=== PATIENT | female | born 1955 | race Caucasian/White ===

== ENCOUNTER 2017-03-14 16:33 | Inpatient (IN) | payer OTHER ==
[2017-03-14] VITALS (9 sets, daily range): BP systolic 124–177; BP diastolic 65–106
[~2017-03-14] VITALS: Ht 160 cm; Wt 67.2 kg
[~2017-03-14 16:33] MED LIST: AMLODIPINE BESY10 MG PO; ASPIRIN325 MG PO; CAPTOPRIL50 MG PO; CARVEDILOL25 MG PO; CILOSTAZOL100 MG PO; ENDOCET 5-3251 EACH PO; GLIPIZIDE10 MG PO; METFORMIN HCL500 MG PO; PLAVIX75 MG PO; PRAVASTATIN SOD80 MG PO
[2017-03-14 16:59] LABS: BASOPHIL COUNT 0.1 K/uL (0-0.1); EOSINOPHIL (%) 1.3 % (0-5); EOSINOPHIL COUNT 0.2 K/uL (0-0.3); HEMATOCRIT 42.6 % (36.0-46.0); IMMATURE GRANULOCYTE (%) 0.3 % (0.0-0.7); INSTRUMENT ABS NEUTROPHIL CT 8.8 K/uL; LYMPHOCYTE COUNT 2.2 K/uL (1.0-2.8); MCH 28.7 PG (29.0-34.0); MCHC 33.1 G/DL (30.0-36.0); MCV 86.8 FL (83-99); MEAN PLAT.VOLUME 11.2 uM^3 (9.5-12.4); MONOCYTE (%) 5.2 % (3-12); MONOCYTE COUNT 0.6 K/uL (0-0.8); NEUTROPHIL COUNT 8.8 K/uL (1.8-6.4); PLATELET COUNT 292 K/uL (156-360); RBC DIS.WIDTH-CV 14.2 % (11.8-14.6); RBC DIS.WIDTH-SD 45.1 % (39-53); RED BLOOD COUNT 4.91 M/uL (3.80-5.20); WHITE BLOOD COUNT 11.9 K/uL (4.1-10.2)
[2017-03-14 17:06] LABS: AMYLASE 79 IU/L (1-118); CHLORIDE 109 mEq/L (99-109); POTASSIUM 4.4 mEq/L (3.7-5.4); SODIUM 141 mEq/L (136-147)
[2017-03-14 17:07] LABS: GLUCOSE 134 mg/dL (70-99); PTT 30.1 SEC (25-37)
[2017-03-14 17:09] LABS: ANION GAP 9 MEQ/L (2-14)
[2017-03-14 17:11] LABS: GFR ESTIMATE (CALCULATED) 27 mL/min/; SERUM ETHYL ALCOHOL < 10 mg/dL
[2017-03-14 17:12] LABS: UREA NITROGEN (BUN) 26 mg/dL (9-23)
[2017-03-14 17:14] LABS: LIPASE 86 U/L (1.0-51.0)
[2017-03-14 17:17] LABS: TROP-I INTERPRETATION NEGATIVE; TROPONIN-I 0.04 ng/mL (0.0-0.30)
[2017-03-14 20:39] LABS: METH RESISTANT S AUREUS PCR NEGATIVE (NEGATIVE)
[2017-03-14 20:43] LABS: PROBE CHECK PASS; SPECIMEN PROCESSING CONTROL PASS
[2017-03-15] VITALS (12 sets, daily range): BP systolic 123–176; BP diastolic 62–87
[2017-03-15 01:07] LABS: TROP-I INTERPRETATION POSITIVE; TROPONIN-I 16.81 ng/mL (0.0-0.30)
[2017-03-15 06:18] LABS: EOSINOPHIL COUNT 0.1 K/uL (0-0.3); HEMATOCRIT 37.7 % (36.0-46.0); IMMATURE GRANULOCYTE (%) 0.6 % (0.0-0.7); IMMATURE GRANULOCYTE COUNT 0.1 K/uL; INSTRUMENT ABS NEUTROPHIL CT 10.1 K/uL; LYMPHOCYTE COUNT 1.6 K/uL (1.0-2.8); MCH 27.9 PG (29.0-34.0); MCHC 32.1 G/DL (30.0-36.0); MCV 87.1 FL (83-99); MEAN PLAT.VOLUME 11.3 uM^3 (9.5-12.4); MONOCYTE (%) 5.5 % (3-12); MONOCYTE COUNT 0.7 K/uL (0-0.8); NEUTROPHIL (%) 80.1 % (45-76); NEUTROPHIL COUNT 10.1 K/uL (1.8-6.4); PLATELET COUNT 273 K/uL (156-360); RBC DIS.WIDTH-CV 14.4 % (11.8-14.6); RBC DIS.WIDTH-SD 45.8 % (39-53); RED BLOOD COUNT 4.33 M/uL (3.80-5.20); WHITE BLOOD COUNT 12.6 K/uL (4.1-10.2)
[2017-03-15 06:31] LABS: ANION GAP 9 MEQ/L (2-14); CHLORIDE 108 MEQ/L (99-109); GFR ESTIMATE (CALCULATED) 37 mL/min/; GLUCOSE 141 mg/dL (70-99); POTASSIUM 4.4 MEQ/L (3.7-5.4); SAMPLE HEMOLYSIS CHECK 0; SAMPLE ICTERIC CHECK 0; SAMPLE LIPEMIA CHECK 0; SODIUM 138 MEQ/L (136-147); UREA NITROGEN (BUN) 26 mg/dL (9-23)
[2017-03-15 07:35] LABS: TROP-I INTERPRETATION POSITIVE; TROPONIN-I 18.12 ng/mL (0.0-0.30)
[2017-03-15 13:36] LABS: TROP-I INTERPRETATION POSITIVE; TROPONIN-I 15.16 ng/mL (0.0-0.30)
[2017-03-15] MEDS ORDERED: METFORMIN HCL1000 MG PO (15:11)
[2017-03-15] MEDS ORDERED: IRBESARTAN300 MG PO (15:11)
[2017-03-15] MEDS ORDERED: ATORVASTATIN CA40 MG PO (15:12)
[2017-03-16 00:20] VITALS: BP 141/71
[2017-03-16 04:00] VITALS: BP 142/65
[2017-03-16] MEDS ORDERED: NICOTINE PATCH1 EAC2 TD (07:16)
[2017-03-16 08:24] VITALS: BP 124/79
[2017-03-16 11:28] VITALS: BP 144/73
== END 2017-03-16 13:25 | disposition home or self-care (01) | DRG 247 ==
LOC: EME 16:33 → ENRESERV 16:47 → EME 17:54 → CATH 18:01 → 4WEST 19:05 → ENRESERV 03-15 10:32 → 4WEST 03-15 10:36 → ENRESERV 03-15 10:40 → 4EAST 03-15 11:32 → ENPENDDIS 03-16 → 4EAST 03-16 13:25
PROVIDERS: Emergency Medicine; Internal Medicine Cardiovascular Disease
DX: I21.11 ST elevation (STEMI) myocardial infarction involving right coronary artery (principal); T82.855A Stenosis of coronary artery stent, initial encounter; T82.867A Thrombosis due to cardiac prosthetic devices, implants and grafts, initial encounter; I25.10 Atherosclerotic heart disease of native coronary artery without angina pectoris; E11.9 Type 2 diabetes mellitus without complications; I10 Essential (primary) hypertension; I73.9 Peripheral vascular disease, unspecified; F17.200 Nicotine dependence, unspecified, uncomplicated; Y83.1 Surgical operation with implant of artificial internal device as the cause of abnormal reaction of the patient, or of later complication, without mention of misadventure at the time of the procedure; I25.2 Old myocardial infarction; Z79.02 Long term (current) use of antithrombotics/antiplatelets; Z86.73 Personal history of transient ischemic attack (TIA), and cerebral infarction without residual deficits; Z79.82 Long term (current) use of aspirin
CPT/HCPCS: 80048; 81003; 82150; 82565; 82948; 83690; 84484; 84520; 85025; 85347; 85610; 85730; 86900; 86901; 87641; 93005; 93306; 99281; 99285; C1725; C1769; C1874; C1887; G0480; J1200; J1644; J2250; J3010

== ENCOUNTER 2017-12-04 14:12 | Emergency (ER) | payer OTHER ==
[~2017-12-04] VITALS: Ht 157.5 cm; Wt 69.8 kg
[~2017-12-04 14:12] MED LIST changes: +ATORVASTATIN CA40 MG PO; +IRBESARTAN300 MG PO; +METFORMIN HCL1000 MG PO; +NICOTINE PATCH1 EAC2 TD
[2017-12-04 14:33] LABS: HEMATOCRIT 36.2 % (36.0-46.0); MCH 28.6 PG (29.0-34.0); MCHC 33.1 G/DL (30.0-36.0); MCV 86.2 FL (83-99); PLATELET COUNT 370 K/uL (156-360); RBC DIS.WIDTH-CV 13.3 % (11.8-14.6); RBC DIS.WIDTH-SD 42.1 % (39-53); WHITE BLOOD COUNT 16.7 K/uL (4.1-10.2)
[2017-12-04 14:43] LABS: CHLORIDE 109 mEq/L (99-109); POTASSIUM 4.5 mEq/L (3.7-5.4); SODIUM 140 mEq/L (136-147)
[2017-12-04 14:45] LABS: GLUCOSE 131 mg/dL (70-99)
[2017-12-04 14:49] LABS: CREATININE 2.8 mg/dL (0.6-1.3); GFR ESTIMATE (CALCULATED) 18 mL/min/
[2017-12-04 14:50] LABS: UREA NITROGEN (BUN) 46 mg/dL (9-23)
[2017-12-04 14:53] LABS: TROP-I INTERPRETATION NEGATIVE; TROPONIN-I 0.03 ng/mL (0.0-0.30)
[2017-12-04 16:25] VITALS: BP 167/98
== END 2017-12-04 16:27 | disposition home or self-care (01) ==
LOC: EME 14:12
DX: R07.2 Precordial pain (principal); N17.9 Acute kidney failure, unspecified; R94.31 Abnormal electrocardiogram [ECG] [EKG]; Z53.21 Procedure and treatment not carried out due to patient leaving prior to being seen by health care provider; I10 Essential (primary) hypertension; I25.2 Old myocardial infarction; E11.9 Type 2 diabetes mellitus without complications; E78.5 Hyperlipidemia, unspecified; K21.9 Gastro-esophageal reflux disease without esophagitis; F17.200 Nicotine dependence, unspecified, uncomplicated; Z79.84 Long term (current) use of oral hypoglycemic drugs; Z79.82 Long term (current) use of aspirin; Z79.02 Long term (current) use of antithrombotics/antiplatelets; Z86.73 Personal history of transient ischemic attack (TIA), and cerebral infarction without residual deficits; Z85.9 Personal history of malignant neoplasm, unspecified; Z90.49 Acquired absence of other specified parts of digestive tract; Z95.9 Presence of cardiac and vascular implant and graft, unspecified; Z88.2 Allergy status to sulfonamides; Z88.1 Allergy status to other antibiotic agents
CPT/HCPCS: 71046; 80048; 81003; 84484; 85027; 93005; 99281; 99284

== ENCOUNTER 2018-02-20 12:13 | Inpatient (IN) | payer OTHER ==
[~2018-02-20] VITALS: Ht 157.5 cm; Wt 64.6 kg
[2018-02-20 12:56] LABS: APPEARANCE CLEAR ((CLEAR)); BILIRUBIN NEGATIVE; BLOOD NEGATIVE; COLOR YELLOW ((YELLOW)); GLUCOSE (STRIP) NEGATIVE; KETONES NEGATIVE; LEUKOCYTES NEGATIVE; NITRITE NEGATIVE; PROTEIN (STRIP) >=500; SPECIFIC GRAVITY 1.016 (1.000-1.030); UROBILINOGEN 0.2 MG/DL (0.2-1.0)
[2018-02-20 13:08] LABS: BACTERIA RARE /HPF; CALCIUM OXALATE CRYSTALS 1+ /HPF; EPITHELIAL CELLS 1+ /HPF; MUCUS NONE SEEN /LPF; RED BLOOD CELLS 0-5 /HPF (0-5); UCUL ADDED? NO; WHITE BLOOD CELLS 0-5 /HPF (0-5)
[2018-02-20 13:45] LABS: HEMATOCRIT 33.3 % (36.0-46.0); HEMOGLOBIN 10.7 G/DL (11.9-15.5); MCHC 32.1 G/DL (30.0-36.0); MCV 87.2 FL (83-99); PLATELET COUNT 316 K/uL (156-360); RBC DIS.WIDTH-CV 15.8 % (11.8-14.6); RBC DIS.WIDTH-SD 50.1 % (39-53); RED BLOOD COUNT 3.82 M/uL (3.80-5.20); WHITE BLOOD COUNT 15.5 K/uL (4.1-10.2)
[2018-02-20 13:55] LABS: CHLORIDE 110 mEq/L (99-109); POTASSIUM 5.6 mEq/L (3.7-5.4); SODIUM 136 mEq/L (136-147)
[2018-02-20 13:56] LABS: GLUCOSE 138 mg/dL (70-99)
[2018-02-20 14:00] LABS: CREATININE 4.4 mg/dL (0.6-1.3); GFR ESTIMATE (CALCULATED) 11 mL/min/
[2018-02-20 14:01] LABS: UREA NITROGEN (BUN) 70 mg/dL (9-23)
[2018-02-20] MEDS ORDERED: NORVASC10 MG PO (18:15)
[2018-02-20] MEDS ORDERED: AFRIN,GENASAL D15 ML BOTH NARES (18:15)
[2018-02-20 21:54] VITALS: BP 169/80
[2018-02-21] VITALS (7 sets, daily range): BP systolic 127–181; BP diastolic 63–82
[2018-02-21 06:17] LABS: HEMATOCRIT 27.8 % (36.0-46.0); HEMOGLOBIN 8.8 G/DL (11.9-15.5); MCH 27.8 PG (29.0-34.0); MCHC 31.7 G/DL (30.0-36.0); MCV 87.7 FL (83-99); PLATELET COUNT 278 K/uL (156-360); RBC DIS.WIDTH-CV 15.6 % (11.8-14.6); RBC DIS.WIDTH-SD 50.4 % (39-53); RED BLOOD COUNT 3.17 M/uL (3.80-5.20); WHITE BLOOD COUNT 12.4 K/uL (4.1-10.2)
[2018-02-21 06:39] LABS: ALBUMIN 3.1 G/DL (3.2-4.8); CHLORIDE 111 MEQ/L (99-109); PHOSPHORUS 5.8 mg/dL (2.5-4.9); POTASSIUM 5.1 MEQ/L (3.7-5.4); SODIUM 139 MEQ/L (136-147); UREA NITROGEN (BUN) 59 mg/dL (9-23)
[2018-02-21 06:45] LABS: CREATININE 3.5 MG/DL (0.6-1.3); GFR ESTIMATE (CALCULATED) 14 mL/min/; GLUCOSE 97 mg/dL (70-99)
[2018-02-21 13:14] LABS: HEMOGLOBIN A1c (GLYCOHEMOGLOB) 6.9 % (Below 5.7)
[2018-02-21 16:16] LABS: CHLORIDE 112 MEQ/L (99-109); CREATININE 3.7 MG/DL (0.6-1.3); GFR ESTIMATE (CALCULATED) 13 mL/min/; GLUCOSE 131 mg/dL (70-99); POTASSIUM 4.8 MEQ/L (3.7-5.4); SODIUM 138 MEQ/L (136-147); UREA NITROGEN (BUN) 60 mg/dL (9-23)
[2018-02-22 03:43] VITALS: BP 141/67
[2018-02-22 06:12] LABS: BASOPHIL (%) 0.7 % (0-1); BASOPHIL COUNT 0.1 K/uL (0-0.1); EOSINOPHIL (%) 1.8 % (0-5); EOSINOPHIL COUNT 0.2 K/uL (0-0.3); HEMATOCRIT 26.9 % (36.0-46.0); HEMOGLOBIN 8.6 G/DL (11.9-15.5); IMMATURE GRANULOCYTE (%) 0.2 % (0.0-0.7); LYMPHOCYTE (%) 20.7 % (15-42); LYMPHOCYTE COUNT 1.8 K/uL (1.0-2.8); MCH 27.3 PG (29.0-34.0); MCV 85.4 FL (83-99); MONOCYTE (%) 7.8 % (3-12); MONOCYTE COUNT 0.7 K/uL (0-0.8); NEUTROPHIL (%) 68.8 % (45-76); NEUTROPHIL COUNT 6.1 K/uL (1.8-6.4); PLATELET COUNT 270 K/uL (156-360); RBC DIS.WIDTH-CV 15.4 % (11.8-14.6); RBC DIS.WIDTH-SD 47.5 % (39-53); RED BLOOD COUNT 3.15 M/uL (3.80-5.20); WHITE BLOOD COUNT 8.9 K/uL (4.1-10.2)
[2018-02-22 06:37] LABS: CHLORIDE 110 MEQ/L (99-109); CREATININE 3.9 MG/DL (0.6-1.3); GFR ESTIMATE (CALCULATED) 12 mL/min/; GLUCOSE 119 mg/dL (70-99); IRON 21 MCG/DL (35-150); PHOSPHORUS 5.6 mg/dL (2.5-4.9); POTASSIUM 4.4 MEQ/L (3.7-5.4); SODIUM 142 MEQ/L (136-147); TRANSFERRIN (TIBC) 213.9 mg/dL (215-380); TRANSFERRIN SATUR. 10 % (20-55); UREA NITROGEN (BUN) 58 mg/dL (9-23)
[2018-02-22 06:55] LABS: URIC ACID 5.8 mg/dL (3.1-9.2)
[2018-02-22 07:33] VITALS: BP 196/77
[2018-02-22 11:46] VITALS: BP 151/77
[2018-02-22 14:08] LABS: URINE TOTAL PROTEIN 125 MG/DL (0-10)
[2018-02-22 14:09] LABS: UR CREATININE CONCENTRATION 17.1 MG/DL
[2018-02-22 15:26] VITALS: BP 140/74
[2018-02-22 19:16] VITALS: BP 148/67
[2018-02-22 23:16] VITALS: BP 134/68
[2018-02-23 03:40] VITALS: BP 152/73
[2018-02-23 06:16] LABS: BASOPHIL (%) 0.6 % (0-1); BASOPHIL COUNT 0.1 K/uL (0-0.1); EOSINOPHIL (%) 1.6 % (0-5); EOSINOPHIL COUNT 0.2 K/uL (0-0.3); HEMATOCRIT 27.6 % (36.0-46.0); HEMOGLOBIN 8.9 G/DL (11.9-15.5); IMMATURE GRANULOCYTE (%) 0.4 % (0.0-0.7); LYMPHOCYTE (%) 13.8 % (15-42); LYMPHOCYTE COUNT 1.3 K/uL (1.0-2.8); MCH 27.1 PG (29.0-34.0); MCHC 32.2 G/DL (30.0-36.0); MCV 84.1 FL (83-99); MONOCYTE (%) 7.3 % (3-12); MONOCYTE COUNT 0.7 K/uL (0-0.8); NEUTROPHIL (%) 76.3 % (45-76); NEUTROPHIL COUNT 7.2 K/uL (1.8-6.4); PLATELET COUNT 318 K/uL (156-360); RBC DIS.WIDTH-CV 15.2 % (11.8-14.6); RBC DIS.WIDTH-SD 46.8 % (39-53); RED BLOOD COUNT 3.28 M/uL (3.80-5.20); WHITE BLOOD COUNT 9.5 K/uL (4.1-10.2)
[2018-02-23 06:36] LABS: ALBUMIN 3.2 G/DL (3.2-4.8); CHLORIDE 108 MEQ/L (99-109); CREATININE 3.8 MG/DL (0.6-1.3); GFR ESTIMATE (CALCULATED) 13 mL/min/; GLUCOSE 116 mg/dL (70-99); MAGNESIUM 1.4 mg/dl (1.3-2.7); PHOSPHORUS 5.4 mg/dL (2.5-4.9); POTASSIUM 4.2 MEQ/L (3.7-5.4); SODIUM 141 MEQ/L (136-147); UREA NITROGEN (BUN) 50 mg/dL (9-23)
[2018-02-23 06:38] LABS: ALBUMIN 3.1 G/DL (3.2-4.8); ALKALINE PHOSPHATASE 109 IU/L (3-129); ALT (GPT) 6 IU/L (3-49); AST (GOT) 8 IU/L (2-34); CHLORIDE 107 MEQ/L (99-109); CREATININE 3.8 MG/DL (0.6-1.3); GFR ESTIMATE (CALCULATED) 13 mL/min/; GLUCOSE 116 mg/dL (70-99); POTASSIUM 4.2 MEQ/L (3.7-5.4); SODIUM 141 MEQ/L (136-147); TOTAL BILIRUBIN 0.3 MG/DL (0.0-1.0); TOTAL PROTEIN 5.3 G/DL (6.4-8.3); UREA NITROGEN (BUN) 50 mg/dL (9-23)
[2018-02-23 07:18] VITALS: BP 153/75
[2018-02-23 11:37] VITALS: BP 130/65
[2018-02-23] MEDS ORDERED: APRESOLINE50 MG PO (14:40)
[2018-02-23] MEDS ORDERED: NICOTINE PATCH1 EAC2 TD (14:40)
[2018-02-23] MEDS ORDERED: ACIDOPHILUS LA1 EACH PO (14:40)
[2018-02-23] MEDS ORDERED: FLAGYL500 MG PO (14:42)
[2018-02-23] MEDS ORDERED: CIPRO500 MG PO (14:42)
[2018-02-23] MEDS ORDERED: GLIPIZIDE5 MG PO (14:43)
== END 2018-02-23 16:20 | disposition home or self-care (01) | DRG 391 ==
LOC: EME 12:13 → 5SOUTH 18:25 → EDOF 18:25 → ENRESERV 18:26 → 5SOUTH 21:25
PROVIDERS: Hospitalist; Internal Medicine; Internal Medicine Nephrology
DX: K57.32 Diverticulitis of large intestine without perforation or abscess without bleeding (principal); N17.0 Acute kidney failure with tubular necrosis; E87.2 Acidosis; E87.5 Hyperkalemia; I12.9 Hypertensive chronic kidney disease with stage 1 through stage 4 chronic kidney disease, or unspecified chronic kidney disease; N18.4 Chronic kidney disease, stage 4 (severe); E11.21 Type 2 diabetes mellitus with diabetic nephropathy; E11.22 Type 2 diabetes mellitus with diabetic chronic kidney disease; E86.0 Dehydration; I71.4 Abdominal aortic aneurysm, without rupture; I25.10 Atherosclerotic heart disease of native coronary artery without angina pectoris; K21.9 Gastro-esophageal reflux disease without esophagitis; D64.9 Anemia, unspecified; M54.5 Low back pain; E78.00 Pure hypercholesterolemia, unspecified; E78.5 Hyperlipidemia, unspecified; F17.210 Nicotine dependence, cigarettes, uncomplicated; I25.2 Old myocardial infarction; Z85.41 Personal history of malignant neoplasm of cervix uteri; Z86.73 Personal history of transient ischemic attack (TIA), and cerebral infarction without residual deficits; Z95.5 Presence of coronary angioplasty implant and graft
CPT/HCPCS: 36600; 74176; 76770; 80048; 80048 91; 80053; 80069; 81003; 82272; 82570; 82803; 82948; 83036; 83540; 83630; 83735; 84156; 84166; 84466; 84550; 85025; 85027; 87177; 87493; 93005; 99281; 99285; J0360; J0744; J1644; J1815; S0030

== ENCOUNTER 2018-04-01 03:44 | Inpatient (IN) | payer OTHER ==
[~2018-04-01] VITALS: Ht 157.5 cm; Wt 67.0 kg
[~2018-04-01 03:44] MED LIST changes: +ACIDOPHILUS LA1 EACH PO; +AFRIN,GENASAL D15 ML BOTH NARES; +APRESOLINE50 MG PO; +CIPRO500 MG PO; +FLAGYL500 MG PO; +GLIPIZIDE5 MG PO; +NORVASC10 MG PO
[2018-04-01 04:04] LABS: COMMENTS - BLOOD GASES C+; CONTINUOUS POS AIRWAY PRESSURE 5 cm H2O; DEVICE MASKVENT; FI02 50 %; MODE NSPONT; PRES. SUPPORT 12 CM/H2O; SITE RR; TOTAL RESP RATE 40 resp/min
[2018-04-01 04:05] LABS: BASE EXCESS -9.8 mEq/L (-3 to +3); CARBOXY HGB 2.7 % (0-5); METHEMOGLOBIN 1.2 % (0-1.5); PCO2 34 mm Hg (35-45); PO2 126 mm Hg (80-100); pH 7.28 (7.35-7.45)
[2018-04-01 04:29] LABS: ALBUMIN 3.3 g/dL (3.2-4.8); BASOPHIL (%) 0.4 % (0-1); BASOPHIL COUNT 0.1 K/uL (0-0.1); EOSINOPHIL (%) 1.1 % (0-5); EOSINOPHIL COUNT 0.2 K/uL (0-0.3); HEMATOCRIT 27.9 % (36.0-46.0); HEMOGLOBIN 9.2 G/DL (11.9-15.5); IMMATURE GRANULOCYTE (%) 1.3 % (0.0-0.7); LYMPHOCYTE (%) 10.7 % (15-42); MCH 27.1 PG (29.0-34.0); MCV 82.1 FL (83-99); MONOCYTE (%) 5.9 % (3-12); MONOCYTE COUNT 1.1 K/uL (0-0.8); NEUTROPHIL (%) 80.6 % (45-76); RBC DIS.WIDTH-CV 15.1 % (11.8-14.6); RBC DIS.WIDTH-SD 45.2 % (39-53); WHITE BLOOD COUNT 18.6 K/uL (4.1-10.2)
[2018-04-01 04:30] LABS: CHLORIDE 99 mEq/L (99-109); POTASSIUM 3.8 mEq/L (3.7-5.4); SODIUM 132 mEq/L (136-147)
[2018-04-01 04:32] LABS: GLUCOSE 225 mg/dL (70-99); PLATELET COUNT 579 K/uL (156-360); TOTAL PROTEIN 6.9 g/dL (6.4-8.3)
[2018-04-01 04:34] LABS: TOTAL BILIRUBIN 0.3 mg/dL (0.0-1.0)
[2018-04-01 04:35] LABS: ALKALINE PHOSPHATASE 130 IU/L (3-129)
[2018-04-01 04:36] LABS: CREATININE 6.5 mg/dL (0.6-1.3); GFR ESTIMATE (CALCULATED) 7 mL/min/
[2018-04-01 04:37] LABS: AST (GOT) 14 IU/L (2-34); UREA NITROGEN (BUN) 89 mg/dL (9-23)
[2018-04-01 04:39] LABS: ALT (GPT) 10 IU/L (3-49)
[2018-04-01 04:40] LABS: TROP-I INTERPRETATION NEGATIVE; TROPONIN-I 0.09 ng/mL (0.0-0.30)
[2018-04-01] MEDS ORDERED: NORVASC10 MG PO (05:11)
[2018-04-01] MEDS ORDERED: VIBRAMYCIN100 MG PO (05:13)
[2018-04-01] MEDS ORDERED: FLONASE SENSIM5.9 ML BOTH NARES (05:15)
[2018-04-01 08:37] VITALS: BP 128/81
[2018-04-01 11:00] LABS: TROP-I INTERPRETATION NEGATIVE; TROPONIN-I 0.09 ng/mL (0.0-0.30)
[2018-04-01] MEDS ORDERED: LOW DOSE ASPIRI81 M1 PO (12:16)
[2018-04-01] MEDS ORDERED: DOXYCYCLINE HY100 MG PO (12:18)
[2018-04-01 16:11] LABS: TROP-I INTERPRETATION NEGATIVE; TROPONIN-I 0.07 ng/mL (0.0-0.30)
[2018-04-01 18:27] VITALS: BP 149/77
[2018-04-01 20:16] VITALS: BP 118/59
[2018-04-01 23:18] VITALS: BP 139/70
[2018-04-02 03:58] VITALS: BP 151/81
[2018-04-02 05:38] LABS: BASOPHIL (%) 0.2 % (0-1); EOSINOPHIL (%) 0.6 % (0-5); EOSINOPHIL COUNT 0.1 K/uL (0-0.3); HEMOGLOBIN 7.4 G/DL (11.9-15.5); IMMATURE GRANULOCYTE (%) 0.7 % (0.0-0.7); LYMPHOCYTE (%) 10.1 % (15-42); LYMPHOCYTE COUNT 1.3 K/uL (1.0-2.8); MCH 26.2 PG (29.0-34.0); MCHC 32.2 G/DL (30.0-36.0); MCV 81.6 FL (83-99); MONOCYTE (%) 4.6 % (3-12); MONOCYTE COUNT 0.6 K/uL (0-0.8); NEUTROPHIL (%) 83.8 % (45-76); NEUTROPHIL COUNT 10.5 K/uL (1.8-6.4); PLATELET COUNT 420 K/uL (156-360); RBC DIS.WIDTH-CV 14.8 % (11.8-14.6); RBC DIS.WIDTH-SD 44.1 % (39-53); RED BLOOD COUNT 2.82 M/uL (3.80-5.20); WHITE BLOOD COUNT 12.5 K/uL (4.1-10.2)
[2018-04-02 06:30] LABS: CHLORIDE 96 MEQ/L (99-109); GLUCOSE 125 mg/dL (70-99); POTASSIUM 3.6 MEQ/L (3.7-5.4); SODIUM 132 MEQ/L (136-147)
[2018-04-02 06:32] LABS: CREATININE 4.1 MG/DL (0.6-1.3); GFR ESTIMATE (CALCULATED) 12 mL/min/; UREA NITROGEN (BUN) 42 mg/dL (9-23)
[2018-04-02 08:17] VITALS: BP 162/80
[2018-04-02 11:56] LABS: HEPATITIS B SURFACE ANTIGEN Nonreactive
[2018-04-02 11:57] LABS: HEPATITIS B SURFACE ANTIBODY Nonreactive
[2018-04-02 12:12] VITALS: BP 149/67
[2018-04-02 13:58] LABS: HEMATOCRIT 23.7 % (36.0-46.0); HEMOGLOBIN 7.8 G/DL (11.9-15.5)
[2018-04-02 17:35] VITALS: BP 185/84
[2018-04-02 19:29] VITALS: BP 157/69
[2018-04-02 23:30] VITALS: BP 156/71
[2018-04-03 04:06] VITALS: BP 150/75
[2018-04-03 07:17] VITALS: BP 174/81
[2018-04-03 11:41] VITALS: BP 134/63
[2018-04-03 16:25] VITALS: BP 148/62
[2018-04-03 19:58] VITALS: BP 165/75
[2018-04-04] VITALS (11 sets, daily range): BP systolic 134–178; BP diastolic 65–90
[2018-04-04 05:40] LABS: BASOPHIL (%) 0.4 % (0-1); BASOPHIL COUNT 0.1 K/uL (0-0.1); EOSINOPHIL (%) 0.7 % (0-5); EOSINOPHIL COUNT 0.1 K/uL (0-0.3); HEMATOCRIT 29.9 % (36.0-46.0); HEMOGLOBIN 9.7 G/DL (11.9-15.5); IMMATURE GRANULOCYTE (%) 1.1 % (0.0-0.7); LYMPHOCYTE (%) 10.8 % (15-42); LYMPHOCYTE COUNT 1.8 K/uL (1.0-2.8); MCHC 32.4 G/DL (30.0-36.0); MCV 83.3 FL (83-99); MONOCYTE (%) 6.5 % (3-12); MONOCYTE COUNT 1.1 K/uL (0-0.8); NEUTROPHIL (%) 80.5 % (45-76); NEUTROPHIL COUNT 13.2 K/uL (1.8-6.4); PLATELET COUNT 419 K/uL (156-360); RBC DIS.WIDTH-CV 14.4 % (11.8-14.6); RBC DIS.WIDTH-SD 43.5 % (39-53); RED BLOOD COUNT 3.59 M/uL (3.80-5.20); WHITE BLOOD COUNT 16.4 K/uL (4.1-10.2)
[2018-04-04 05:48] LABS: CHLORIDE 100 MEQ/L (99-109); CREATININE 4.3 MG/DL (0.6-1.3); GFR ESTIMATE (CALCULATED) 11 mL/min/; GLUCOSE 158 mg/dL (70-99); POTASSIUM 3.8 MEQ/L (3.7-5.4); SODIUM 136 MEQ/L (136-147); UREA NITROGEN (BUN) 39 mg/dL (9-23)
[2018-04-05 04:00] VITALS: BP 186/89
[2018-04-05 05:44] LABS: BASOPHIL (%) 0.5 % (0-1); BASOPHIL COUNT 0.1 K/uL (0-0.1); EOSINOPHIL COUNT 0.2 K/uL (0-0.3); HEMATOCRIT 30.9 % (36.0-46.0); HEMOGLOBIN 9.9 G/DL (11.9-15.5); IMMATURE GRANULOCYTE (%) 0.7 % (0.0-0.7); LYMPHOCYTE (%) 12.5 % (15-42); MCH 26.8 PG (29.0-34.0); MCV 83.5 FL (83-99); MONOCYTE (%) 6.1 % (3-12); NEUTROPHIL (%) 79.2 % (45-76); NEUTROPHIL COUNT 12.4 K/uL (1.8-6.4); PLATELET COUNT 418 K/uL (156-360); RBC DIS.WIDTH-CV 14.6 % (11.8-14.6); RBC DIS.WIDTH-SD 44.8 % (39-53); WHITE BLOOD COUNT 15.7 K/uL (4.1-10.2)
[2018-04-05 06:03] LABS: CHLORIDE 101 MEQ/L (99-109); GFR ESTIMATE (CALCULATED) 9 mL/min/; MAGNESIUM 1.8 mg/dl (1.3-2.7); POTASSIUM 3.4 MEQ/L (3.7-5.4); SODIUM 139 MEQ/L (136-147); UREA NITROGEN (BUN) 45 mg/dL (9-23)
[2018-04-05 06:07] LABS: CREATININE 5.2 MG/DL (0.6-1.3); GLUCOSE 115 mg/dL (70-99)
[2018-04-05 12:10] VITALS: BP 198/91
[2018-04-05] MEDS ORDERED: HYDROCODON-ACE1 EAC7 PO (12:19)
[2018-04-05] MEDS ORDERED: CEFTIN500 MG PO ×2 (12:19→14:51)
[2018-04-05] MEDS ORDERED: NICOTINE PATCH1 EAC2 TD (12:19)
[2018-04-05 14:30] VITALS: BP 142/67
== END 2018-04-05 17:29 | disposition home or self-care (01) | DRG 304 ==
LOC: EME → EDBD 03:44 → 4EAST 07:37 → EDOF 07:37 → 4EAST 08:25
PROVIDERS: Emergency Medicine; Hospitalist; Internal Medicine Nephrology
PROC: 02HV33Z Insertion of Infusion Device into Superior Vena Cava, Percutaneous Approach (ICD-10-PCS; 2018-04-01)
PROC: 5A1D70Z Performance of Urinary Filtration, Intermittent, Less than 6 Hours Per Day (ICD-10-PCS; 2018-04-01)
PROC: 5A09357 Assistance with Respiratory Ventilation, Less than 24 Consecutive Hours, Continuous Positive Airway Pressure (ICD-10-PCS; 2018-04-01)
PROC: 30233N1 Transfusion of Nonautologous Red Blood Cells into Peripheral Vein, Percutaneous Approach (ICD-10-PCS; principal; 2018-04-04)
DX: I16.0 Hypertensive urgency (principal); N17.9 Acute kidney failure, unspecified; I12.0 Hypertensive chronic kidney disease with stage 5 chronic kidney disease or end stage renal disease; N18.6 End stage renal disease; E87.70 Fluid overload, unspecified; J96.01 Acute respiratory failure with hypoxia; J18.9 Pneumonia, unspecified organism; E11.22 Type 2 diabetes mellitus with diabetic chronic kidney disease; D63.1 Anemia in chronic kidney disease; E87.2 Acidosis; I25.10 Atherosclerotic heart disease of native coronary artery without angina pectoris; I71.4 Abdominal aortic aneurysm, without rupture; I71.2 Thoracic aortic aneurysm, without rupture; E78.5 Hyperlipidemia, unspecified; I25.2 Old myocardial infarction; I69.351 Hemiplegia and hemiparesis following cerebral infarction affecting right dominant side; K21.9 Gastro-esophageal reflux disease without esophagitis; F17.210 Nicotine dependence, cigarettes, uncomplicated; Z85.41 Personal history of malignant neoplasm of cervix uteri; Z85.43 Personal history of malignant neoplasm of ovary; Z90.710 Acquired absence of both cervix and uterus; Z95.5 Presence of coronary angioplasty implant and graft; Z79.84 Long term (current) use of oral hypoglycemic drugs; Z79.02 Long term (current) use of antithrombotics/antiplatelets; Z71.6 Tobacco abuse counseling; Z90.49 Acquired absence of other specified parts of digestive tract
CPT/HCPCS: 36600; 71045; 71250; 80048; 80053; 81003; 82948; 83605; 83735; 83880; 84145 90; 84484; 85014; 85018; 85025; 86706; 86850; 86900; 86901; 86920; 87040; 87070; 87205; 87340; 87449; 93005; 93306; 94002; 94640; 94760; 94799; 99281; 99285; C1750; C1769; C1894; J0295; J0360; J0456; J0881; J1200; J1644; J1815; J1940; J2250; J2543; J3010; J3370; J7050; P9040; S0020